=== PATIENT | male | born 1985 | race Caucasian/White ===

== ENCOUNTER 2024-04-06 22:55 | Emergency (ER) | payer OTHER ==
[~2024-04-06] VITALS: Ht 182.9 cm; Wt 90.1 kg
[2024-04-06 23:57] VITALS: BP 164/97
== END 2024-04-06 23:58 | disposition home or self-care (01) ==
LOC: ED 22:55
DX: S93.402A Sprain of unspecified ligament of left ankle, initial encounter (principal); W10.9XXA Fall (on) (from) unspecified stairs and steps, initial encounter; Z88.2 Allergy status to sulfonamides
CPT/HCPCS: 73610; 99283

== ENCOUNTER 2025-06-03 13:10 | Inpatient (IN) | payer OTHER ==
[~2025-06-03] VITALS: Ht 182.9 cm; Wt 90.3 kg
[2025-06-03] VITALS (8 sets, daily range): BP systolic 111–136; BP diastolic 63–89
[~2025-06-03 13:10] MED LIST: SEVOFLURANE 250 ML BTL INH ONE
[2025-06-03] MEDS ORDERED: ADDERALL XR 2020 MG PO (13:46)
[2025-06-03] MEDS ORDERED: ADDERALL 5 MG TA5 MG PO (13:46)
[2025-06-03] MEDS ORDERED: FLOMAX0.4 MG PO (13:46)
[2025-06-03 13:47] LABS: BLOOD/HGB, URINE NEGATIVE (Negative); KETONE, URINE NEGATIVE (Negative); LEUK ESTERASE, URINE NEGATIVE (negative); NITRITE, URINE NEGATIVE (negative)
[2025-06-03] MEDS ORDERED: WELLBUTRIN XL300 MG PO (13:47)
[2025-06-03] MEDS ORDERED: PEPCID20 MG PO (13:47)
[2025-06-03 13:55] LABS: BASOPHILS 0.5 % (0.2-1.2); EOSINOPHILS 0.8 % (0.8-7.0); LYMPHOCYTES 9.4 % (21.8-53.1); MCH 33.5 PG (25.7-32.2); MCHC 35.7 g/dL (32.3-36.5); MCV 93.7 fL (79.0-92.2); MONOCYTES 7.2 % (5.3-12.2); NEUTROPHILS 81.7 % (34.0-67.9); RBC 5.05 M/uL (4.63-6.08)
[2025-06-03 14:11] LABS: ALT (SGPT) 37.0 U/L (14-59); AST (SGOT) 23.0 U/L (15-37); GLOMERULAR FILTRATION RATE,EST 100.0 mL/min (>60); PROTEIN, TOTAL 7.9 g/dL (6.4-8.2); UREA NITROGEN 18.0 mg/dL (7-18)
[2025-06-03] MEDS ORDERED: SODIUM CHLORIDE 0.9% 1,000 ML IV PRN (15:00)
[2025-06-03] MEDS ORDERED: LIDOCAINE 2% VISCOUS 6 ML SYR TOP ONE (16:00)
[2025-06-03] MEDS ORDERED: HYDROmorphone HCL 1 MG/ML SYR IV PRN (16:00)
[2025-06-03] MEDS ORDERED: LIDOCAINE HCL 2% 5 ML SDV ONE (18:02)
[2025-06-03] MEDS ORDERED: ROCURONIUM BROMIDE 50 MG/5 ML SYR ONE (18:02)
[2025-06-03] MEDS ORDERED: LIDOCAINE HCL 1% 30 ML SDV ONE (18:02)
[2025-06-03] MEDS ORDERED: MIDAZOLAM HCL 2 MG/2 ML VIAL ONE (18:03)
[2025-06-03] MEDS ORDERED: KETOROLAC TROMETHAMINE 30 MG/ML VIAL ONE (18:03)
[2025-06-03] MEDS ORDERED: DEXAMETHASONE SOD PHOS 4 MG/ML VIAL ONE ×2 (18:03→19:10)
[2025-06-03] MEDS ORDERED: fentaNYL citrate 100 MCG/2 ML VIAL ONE (18:03)
[2025-06-03] MEDS ORDERED: SUGAMMADEX SODIUM 200 MG/2 ML ML ONE (18:03)
--- NOTE | 2025-06-03 18:05 | NUR ---
PT SELF TRANSFERS TO BED FROM [facility] VISITOR PRESENT IN THE ROOM. PRE-OP ED PROVIDED PT DENIES QUESTIONS OR CONCERNS. PT ORIENTED TO ROOM AND ROUTINE.
--- NOTE | 2025-06-03 18:15 | NUR ---
PT REMOVES JEWELRY PLACED IN ROOM SAFE WITH WALLET AND PHONE. ALL QUESTIONS ANSWERED. NG TUBE TO LIS DRAINING BROWN FLUID. VISITOR CONTINUES TO BE PRESENT CALL LIGHT IN LAP PT DENIES NEEDS
[2025-06-03] MEDS ORDERED: CIALIS10 MG PO (18:24)
[2025-06-03] MEDS ORDERED: CEFTRIAXONE SODIUM 1 GM VIAL ONE (18:44)
[2025-06-03] MEDS ORDERED: SODIUM CHLORIDE 0.9% 20 ML IV ONE (18:46)
[2025-06-03] MEDS ORDERED: SODIUM CHLORIDE 0.9% 40 ML IV ONE (19:10)
[2025-06-03] MEDS ORDERED: Ropivacaine HCl 0.5% 30 ML VIAL ONE (19:10)
--- NOTE | 2025-06-03 19:30 | NUR ---
REPORT RECEIVED FROM DAY SHIFT RN. PT OFF FLOOR AT THIS TIME IN OR. FAMILY IN ROOM.
[2025-06-03] MEDS ORDERED: DEXTROSE 5% - LACTATED RINGERS 1,000 ML IV SCH (20:00)
[2025-06-03] MEDS ORDERED: NALOXONE HCL 0.4 MG SYR IV PRN (20:00)
[2025-06-03] MEDS ORDERED: MORPHINE SULFATE 10 MG/ML VIAL IV PRN (20:00)
[2025-06-03] MEDS ORDERED: KETOROLAC TROMETHAMINE 30 MG/ML VIAL IV PRN (20:00)
[2025-06-03] MEDS ORDERED: PROCHLORPERAZINE EDISYLATE 10 MG/2 ML VIAL IV PRN (20:00)
[2025-06-03] MEDS ORDERED: ACETAMINOPHEN 1,000 MG/100 ML VIAL ONE (20:01)
[2025-06-03] MEDS ORDERED: HYDROmorphone HCL 1 MG/ML SYR ONE (20:23)
--- NOTE | 2025-06-03 20:34 | NUR ---
06/03/252033 Annalise Sanford 2008-PT ARRIVES TO PACU ON 6L VIA MASK. PT IS NONAROUSABLE TO VERBAL SIMULI. RESP EVEN AND UNLABORED. OPA IN PLACE. O2 SAT AT 100% ON 6L. 2015-PT IS REACTIVE. OPA REMOVED. RESP EVEN AND UNLABORED. 2016-PT IS DROWSY. RESP EVEN AND UNLABORED. RATES PAIN 5/10. DENIES NAUSEA. PT GIVEN PILLOW TO SPLINT WITH WHEN COUGHING. 2019- HOB ELEVATERD. RESP EVEN AND UNLABORED. 2022-O2 TITRATED OFF. O2 SATS ABOVE 95% ON RA. 2024-RATES PAIN 6/10. PAIN MEDS GIVEN PER LEAD CARE MANAGER. RESP EVEN AND UNLABORED. O2 SAT ABOVE 95% ON RA. 2029-PT TAKLKING WITH LEAD CARE MANAGER. RESP EVEN AND UNLABORED. O2 SATS ABOVE 95% ON RA.
--- NOTE | 2025-06-03 20:50 | NUR ---
PT TO FLOOR VIA BED WITH PACU NURSE. REPORT RECEIVED. VS OBTAINED. MIDLINE ABD DRESSING WITH SCANT AMOUNT SEROSANG DRAINAGE. NGT TO LIWS WITH SCANT BROWN DRAINAGE. PT NPO. FEW ICE CHIPS PROVIDED. IVF INFUSING PER ORDER. SCD'S/CPOX IN PLACE. FAMILY AT BEDSIDE. NO NEEDS AT THIS TIME.
[2025-06-03] MEDS ORDERED: FAMOTIDINE 20 MG/ 2 ML VIAL IV SCH (21:00)
--- NOTE | 2025-06-03 21:51 | NUR ---
DR BARRERA CALLED PER REQUEST OF PRIMARY RN NALINI TO ASK FOR NICOTINE PATCH pt IS ASKING FOR ONE. TELEPHONE ORDER READ BACK FROM MD FOR DAILY NICOTINE PATCH 7MG/24HR TO START NOW. ORDER PLACED AND PRIMARY RN UPDATED.
[2025-06-03] MEDS ORDERED: NICOTINE 7 MG/24 HR 1 EA TDSY TD SCH (22:00)
--- NOTE | 2025-06-03 22:03 | NUR ---
ASSESSMENT COMPLETE. SCHEDULED MEDS ADMIN PER EMAR. PT REPORTS ABD PAIN 01/22. PRN FOR PAIN ADMIN PER EMAR. DENIES NAUSEA. NGT TO LIWS WITH SMALL AMOUNT BROWN DRAINAGE. MIDLINE ABD INCISION WITH DRESSING INTACT. SMALL AMOUNT SEROSANG DRAINAGE. BOWEL TONES HYPOACTIVE. ABD SOFT. ICE PACK PROVIDED FOR COMFORT. CPOX/SCD'S IN PLACE. FEW ICE CHIPS PROVIDED. PT DENIES QUESTIONS OR CONCERS. CALL LIGHT IN REACH.
--- NOTE | 2025-06-03 23:06 | NUR ---
POST OP VS OBTAINED. PT REPORTS HE IS RESTING COMFORTABLY. NO C/O PAIN AT THIS TIME AT REST. NO FURTHER NEEDS.
--- NOTE | 2025-06-03 23:49 | NUR ---
LAST SET OF POST-OP VVS, pt RESTING QUIETLY IN BED. RR EVEN AND UNLABORED, NO DISTRESS NOTED. CALL LIGHT IN REACH. CPOX REMAINS IN PLACE.
[2025-06-04] VITALS (10 sets, daily range): BP systolic 122–145; BP diastolic 79–93
--- NOTE | 2025-06-04 01:16 | NUR ---
PT RESTING IN BED WITH EYES CLOSED. RESPIRATIONS EVEN. SpO2 94% ON RA. HOB ELEVATED. HR 70'S. CALL LIGHT IN REACH.
--- NOTE | 2025-06-04 01:42 | NUR ---
PT RESTING WITH EYES CLOSED. AWAKENS EASILY. VS AND I&O OBTAINED. ASSESSMENT UNCHANGED. NO C/O PAIN OR NAUSEA AT THIS TIME. DENIES NEEDS. CALL LIGHT IN REACH.
--- NOTE | 2025-06-04 03:40 | NUR ---
CALL LIGHT ANSWERED. PT REPORTS ABD PAIN. PRN FOR PAIN ADMIN PER EMAR. ICE PACK PROVIDED FOR INCISION. BOWEL TONES ACTIVE. PT REPORTS FLATUS. DRESSING UNCHANGED. NO FURTHER NEEDS.
[2025-06-04 05:14] LABS: BASOPHILS 0.2 % (0.2-1.2); EOSINOPHILS 0 % (0.8-7.0); LYMPHOCYTES 3.8 % (21.8-53.1); MCH 33.1 PG (25.7-32.2); MCHC 34.7 g/dL (32.3-36.5); MCV 95.4 fL (79.0-92.2); MONOCYTES 3.1 % (5.3-12.2); NEUTROPHILS 92.5 % (34.0-67.9); RBC 4.80 M/uL (4.63-6.08)
[2025-06-04 05:24] LABS: GLOMERULAR FILTRATION RATE,EST 115.0 mL/min (>60); UREA NITROGEN 14.0 mg/dL (7-18)
--- NOTE | 2025-06-04 05:56 | NUR ---
LAB IN FOR MORNING DRAW. PT REPORTS ABD PAIN 01/22. PRN FOR PAIN ADMIN PER EMAR. PT UP TO AMB X 1 LAP AROUND NURSING UNIT WITH SBA. IRVIN WELL. BACK TO RECLINER. NO FURTHER NEEDS. CALL LIGHT IN REACH.
--- NOTE | 2025-06-04 07:39 | NUR ---
REPORT RECEIVED FROM NALINI HORTA. PATIENT IN BED, EYES CLOSED, CHEST RISE EVEN AND UNLABORED. CALL LIGHT AND PERSONAL BELONGINGS IN REACH.
--- NOTE | 2025-06-04 08:41 | NUR ---
PATIENT IN BED. ASSISTED PATIENT TO RESTROOM AND BACK TO BED. CALL LIGHT IN REACH. NG TUBE TO INTERMITTENT SUCTION. CPOX IN PLACE. IV FLUID INFUSING WITHOUT DIFFICULTY. CPOX IN PLACE. SCHEDULED MEDICATIONS ADMINISTERED. ASSESMENT COMPLETE. PATIENT PROVIDED PRN PAIN MEDICATION AT HIS REQUEST.
--- NOTE | 2025-06-04 09:14 | NUR ---
ALERT AND ORIENTED IN BED. FAMILY MEMBER AT BEDSIDE. HAS NG TUBE IN PLACE. VERIFIED DEMOGRAPHICS WITH PATIENT. HAS NO DME. DRIVES AT BASELINE. HAS NO FINANCIAL CONCERNS. NO CM NEEDS NOTED AT THIS TIME. WILL DC TO HOME WHEN MEDICALLY READY.
[2025-06-04] MEDS ORDERED: VITAMIN C500 M1 PO (09:18)
[2025-06-04] MEDS ORDERED: IBU-200200 MG PO (09:18)
[2025-06-04] MEDS ORDERED: TRIAMCINOLONE A15 G1 TOP (09:18)
[2025-06-04] MEDS ORDERED: TYLENOL EXTRA500 MG PO (09:18)
[2025-06-04] MEDS ORDERED: [UNRECOGNIZED DRUG - OTHER] PO (09:19)
--- NOTE | 2025-06-04 09:23 | NUR ---
MED REC COMPLETE
--- NOTE | 2025-06-04 10:03 | NUR ---
PATIENT AMBULATED THE [place] WITH THIS RN STANDBY ASSIST, PATIENT TOLERATED WELL. ASSISTED PATIENT TO RESTROOM AND BACK TO BED. CALL LIGHT AND PERSONAL BELONGINGS IN REACH OF PATIENT. PATIENT DENIES CONCERNS AT THIS TIME.
--- NOTE | 2025-06-04 10:56 | NUR ---
UR CLINICAL REVIEW: MCG-PER MCG REVIEW MEETS INPT FOR SBO WITH NEED FOR PROCEDURE, NG AND IVF. ODS [facility] INPT 06/03/25 @ 2003 ORDER MATCHES REG CLINICAL FAXED TO [facility] FOR AUTH REVIEW DISCHARGE TO HOME WHEN STABLE 06/05/25 DC REVIEW
--- NOTE | 2025-06-04 11:20 | NUR ---
PATIENT IN BED, EYES CLOSED, CHEST RISE EVEN AND UNLABORED. CALL LIGHT AND PERSONAL BELONGINGS IN REACH OF PATIENT. NO NEEDS NOTED AT THIS TIME.
--- NOTE | 2025-06-04 12:27 | NUR ---
PATIENT IN BED, AT BEDSIDE. THIS RN PROVIDED STANDBY ASSIST, PATIENT AMBULATED [place], PATIENT TOLERATED WELL. ASSISTED PATIENT TO RESTROOM AND BACK TO BED. CALL LIGHT AND PERSONAL BELONGINGS IN REACH OF PATIENT.
--- NOTE | 2025-06-04 12:33 | NUR ---
PRN PAIN MEDICATION ADMINISTERED PER PATEINT REQUEST. PATIENT IN BED, CALL LIGHT IN REACH
--- NOTE | 2025-06-04 13:52 | NUR ---
PATIENT IN BED, EYES CLOSED, CHEST RISE EVEN AND UNLABORED. CALL LIGHT AND PERSONAL BELONGINGS IN REACH OF PATIENT.
--- NOTE | 2025-06-04 14:49 | NUR ---
MEDICAL PATHOLOGIST IN ROOM WITH PATIENT, PATIENT AMBULATING [place] WITH MEDICAL PATHOLOGIST.
--- NOTE | 2025-06-04 15:00 | NUR ---
PATIENT AND I WALKED SIX LAPS AROUND MED SURG.
--- NOTE | 2025-06-04 15:30 | NUR ---
PATIENT IN BED, SURGICAL MD MARCOS AT BEDSIDE. VERBAL ORDERS RECEIVED TO DC NG TUBE. THEN ADVANCE DIET TOLERATED BEGINING WITH CLEAR LIQUIDS. NO FURTHER ORDERS AT THIS TIME. CALL LIGHT AND PERSONAL BELONGINGS IN REACH OF PATIENT.
--- NOTE | 2025-06-04 15:50 | NUR ---
PATIENT IN BED. NG TUBE REMOVED PER ORDER, INTACT, WNL, PATIENT TOLERATED WELL. PATIENT DENIES CONCERNS AT THIS TIME. CLEAR LIQUIDS AT BEDSIDE. PATIENT EDUCATED TO ADVANCE DEIT IN SMALL AMOUNTS SLOWLY AND TOLERATED. PATIENT VERBALIZED UNDERSTANDING AND DENEIS QUESTIONS. CALL LIGHT AND PERSONAL BELONGINGS IN REACH OF PATIENT.
--- NOTE | 2025-06-04 16:24 | NUR ---
PATIENT IN BED, EYES CLOSED, CHEST RISE EVEN AND UNLABORED. CALL LIGHT AND PERSONAL BELONGINGS IN REACH OF PATIENT.
--- NOTE | 2025-06-04 17:17 | NUR ---
PATIENT IN BED, DINNER AT BEDSIDE. CALL LIGHT AND PERSONAL BELONGINGS IN REACH OF PATIENT.
--- NOTE | 2025-06-04 18:28 | NUR ---
PATIENT AMBULATED THE HALLS WITH THIS RN STANDBY ASSIST. PATIENT IN BED, CALL LIGHT AND PERSONAL BELONGINGS IN REACH OF PATIENT.
--- NOTE | 2025-06-04 19:18 | NUR ---
REPORT RECEIVED FROM DAY SHIFT RN. PT LYING IN BED RESTING WITH EYES CLOSED. RESPIRATIONS EVEN. WHITE BOARD UPDATED. CALL LIGHT IN REACH.
--- NOTE | 2025-06-04 20:31 | NUR ---
EVENING ASSESSMENT COMPLETE. SCHEDULED MEDS ADMIN PER EMAR. PT REPORTS ABD PAIN 5/10. PRN FOR PAIN ADMIN PER EMAR. ICE PACK PROVIDED FOR COMFORT. PT DENIES NAUSEA. ENSURE AND PUDDING PROVIDED. BOWEL TONES ACTIVE. ABD SOFT. PT REPORTS FLATUS. MIDLINE ABD INCISION WITH DRESSING INTACT. SMALL AMOUNT OLD SHADOWING NOTED. PT DENIES QUESTIONS OR CONCERNS. CALL LIGHT IN REACH.
--- NOTE | 2025-06-04 21:50 | NUR ---
PT JOSE [place] INDEPENDENTLY. REPORTS IRVIN FULL LIQUID DIET WELL. NO NEEDS AT THIS TIME.
[2025-06-05] VITALS (10 sets, daily range): BP systolic 127–147; BP diastolic 74–97
--- NOTE | 2025-06-05 00:48 | NUR ---
PT AMB X 2 LAPS AROUND NURSING UNIT. BACK TO BED, IRVIN WELL. REPORTS SOME ABD PAIN, DENIES PRN FOR PAIN WHEN OFFERED. ICE PACK PROVIDED. URINAL EMPTIED. PUDDING PROVIDED. NO FURTHER NEEDS. CALL LIGHT IN REACH.
--- NOTE | 2025-06-05 02:03 | NUR ---
CALL LIGHT ANSWERED. PT REPORTS ABD PAIN 02/21. PRN FOR PAIN ADMIN PER EMAR. ABD ASSESSMENT UNCHANGE. URINAL EMPTIED. NO FURTHER NEEDS.
--- NOTE | 2025-06-05 06:25 | NUR ---
PT UP AMB IN [place] INDEPENDENTLY. BACK TO ROOM. VS AND I&O OBTAINED. REPORTS ABD PAIN /10. PRN FOR PAIN ADMIN PER EMAR. DENIES NAUSEA. PT DENIES FURTHER NEEDS. CALL LIGHT IN REACH.
--- NOTE | 2025-06-05 06:59 | NUR ---
PT REQUESTING HOME MEDS. PHONED. NEW TELEPHONE ORDERS RECEIVED VERIFIED WITH READBACK METHOD.
[2025-06-05] MEDS ORDERED: HYDROCODONE/ACETA 5/325 TAB PO PRN (07:00)
--- NOTE | 2025-06-05 07:24 | NUR ---
REPORT RECEIVED FROM NALINI HORTA. PATIENT UP IN ROOM, DENIES CONCERNS. CALL LIGHT IN REACH.
[2025-06-05] MEDS ORDERED: FAMOTIDINE 20 MG TAB PO SCH (09:00)
[2025-06-05] MEDS ORDERED: TAMSULOSIN HCL 0.4 MG CAP PO SCH (09:00)
--- NOTE | 2025-06-05 09:22 | NUR ---
PATIENT IN BED, FAMILY AT BEDSIDE. ASSESMENT COMPLETE. SCHEDULED MEDICATIONS ADMINISTERED. PRN PAIN MEDICATION ADMINISTERED PER PATIENT REQUEST. CALL LIGHT AND PERSONAL BELONGINGS IN REACH OF PATIENT. PATIENT DENIES CONCERNS.
--- NOTE | 2025-06-05 09:52 | NUR ---
PATIENT AMBULATING [place]
--- NOTE | 2025-06-05 09:53 | NUR ---
AMBULATING IN HALLWAY, NO CM NEEDS. WILL GO HOME WHEN MEDICALLY READY
--- NOTE | 2025-06-05 10:40 | NUR ---
PATIENT IN BED, DENIES CONCERNS AT THIS TIME. CALL LIGHT AND PERSONAL BELONGINGS IN REACH OF PATIENT.
[2025-06-05] MEDS ORDERED: POLYETHYLENE GLYCOL 3350 1 PACKET PO SCH (10:52)
--- NOTE | 2025-06-05 11:13 | NUR ---
PATIENT IN BED, SCHEDULED MEDICATION ADMINISTERED. ABDOMINAL BINDER SUPPLIED. CALL LIGHT AND PERSONAL BELONGINGS IN REACH OF PATIENT. PATIENT DENIES CONCERNS.
--- NOTE | 2025-06-05 11:30 | NUR ---
AFTER PATIENT WAS DONE WITH HIS BED BATH. PATIENT AND I WALKED AROUND MED SURG.
--- NOTE | 2025-06-05 11:56 | NUR ---
PATIENT IN BED, ABDOMINAL BINDER IN PLACE. LUNCH AT BEDSIDE. CALL LIGHT AND PERSONAL BELONGINGS IN REACH OF PATIENT. PATIENT DENIES CONCERNS AT THIS TIME.
--- NOTE | 2025-06-05 12:18 | NUR ---
PATIENT AMBULATING HALLS WITH RESOURCE TEACHER.
--- NOTE | 2025-06-05 13:08 | NUR ---
PATIENT IN BED, FINISHED REGUALR DIET LUNCH. DENIES GI CHANGES OF CONCERS. FOCUSED ASSESMENT COMPLETED. CALL LIGHT AND PERSONAL BELONGINGS IN REACH OF PATIENT.
--- NOTE | 2025-06-05 13:17 | NUR ---
PATIENT IN BED AT THIS TIME. PLUNGER MACHINE OPERATOR CHARTED VITALS AND I&O'S. CALL LIGHT WITHIN REACH, NO FURTHER NEEDS.
--- NOTE | 2025-06-05 13:30 | NUR ---
PATIENT AMBULATING HALL
--- NOTE | 2025-06-05 13:53 | NUR ---
PATIENT IN BED, CALL LIGHT AND PERSONAL BELONGINGS IN REACH.
--- NOTE | 2025-06-05 14:17 | NUR ---
PATIENT IN BED, EYES CLOSED, CHEST RISE EVEN AND UNLABORED. CALL LIGHT AND PERSONAL BELONGINGS IN REACH.
--- NOTE | 2025-06-05 15:58 | NUR ---
PATIENT IN BED, CALL LIGHT IN REACH
--- NOTE | 2025-06-05 16:07 | NUR ---
PRN PAIN MEDICATION ADMINISTERED PER PATIENT REQUEST. PATIENT PROVIDED WITH FRESH ICE WATER. PATIENT DENIES FURTHER CONCERNS. PATIENT IN BED, CALL LIGHT AND PERSONAL BELONGINGS IN REACH.
--- NOTE | 2025-06-05 17:08 | NUR ---
PATIENT IN BED, DINNER AT BEDSIDE. CALL LIGHT AND PERSONAL BELONGINGS IN REACH. PATIENT DENIES CONCERNS.
--- NOTE | 2025-06-05 17:22 | NUR ---
PATIENT AMBULATING [place]
--- NOTE | 2025-06-05 19:33 | NUR ---
REPORT RECEIVED FROM DAY SHIFT RN. PATIENT SITTING IN CHAIR. DENIES NEEDS AT THIS TIME. CALL LIGHT IN REACH.
--- NOTE | 2025-06-05 20:15 | NUR ---
PT C/O ABDOMINAL PAIN 12/22. PT MEDICATED WITH 1 HYDROCODONE PO. PT PROVIDE PUDDING AND 240ML ENSURE. PT RESTING IN BED. SIDERAILS UP X2, CALL BONNER IN REACH, BED IN LOW POSITION AND LOCKED, PT INSTRUCTED TO CALL FOR ASSISTANCE PRN.
--- NOTE | 2025-06-05 20:45 | NUR ---
IN ROOM FOR VS. pt RESTING IN BED ON COMPUTER. VSS. URINAL EMPTIED. MYCHAL YOUNG IN ROOM MEDICATING pt. CALL LIGHT IN REACH.
--- NOTE | 2025-06-05 21:09 | NUR ---
PATIENT RESTING IN BED. ABD BINDER IN PLACE. PATIENT DENIES PAIN. BOWEL TONES ACTIVE. PATIENT DENIES FURTHER NEEDS. CALL LIGHT IN REACH.
--- NOTE | 2025-06-06 02:47 | NUR ---
ROUNDING ON PATIENT. PATIENT DENIES NEEDS. CALL LIGHT IN REACH.
[2025-06-06 05:46] VITALS: BP 145/93
--- NOTE | 2025-06-06 05:49 | NUR ---
ALARM SIGNAL OPERATOR OBTAINED VITALS AND I&O. PT REQUESTING PAIN MEDS. RN NOTIFIED. PT STATES NO FURTHER NEEDS AT THIS TIME. CALL LIGHT WITHIN REACH.
--- NOTE | 2025-06-06 05:54 | NUR ---
PRN PAIN MEDICATION ADMINISTERED FOR 6/10 ABD PAIN. PATIENT DENIES FURTHER NEEDS. CALL LIGHT IN REACH. ABD BINDER REMAINS IN PLACE.
--- NOTE | 2025-06-06 07:10 | NUR ---
RECIEVED REPORT FROM MYCHAL BELTRAN. PT IS AMBULATING AROUND ROOM. DENIES ANY NEEDS AT THIS TIME.
[2025-06-06] MEDS ORDERED: IBUPROFEN 600 MG TAB PO PRN (07:45)
[2025-06-06] MEDS ORDERED: POLYETHYLENE GLYCOL 3350 1 PACKET PO SCH (09:00)
--- NOTE | 2025-06-06 09:20 | NUR ---
PT AMBULATING HALLS AT THIS TIME.
--- NOTE | 2025-06-06 09:20 | NUR ---
Spoke with Bk his . Pt wanting to go home today. He is ambulating with his small children in the hallway. He denies any needs. will transport him home.
--- NOTE | 2025-06-06 09:30 | NUR ---
PATIENT AMBULTING IN THE HALLWAY INDEPENDENTLY WITH HIS TWO KIDS AT THIS TIME.
[2025-06-06 09:38] VITALS: BP 134/87
--- NOTE | 2025-06-06 09:43 | NUR ---
PATIENT IS IN BED AT THIS TIME, DID A FEW LAPS EARLIER, CHARTED VITALS AND I&O'S, CALL LIGHT WITH IN REACH, FAMILY IN ROOM AND NOTHING ELSE NEEDED AT THIS TIME.
--- NOTE | 2025-06-06 10:00 | NUR ---
PATIENT IS AMBULATING IN THE HALLWAY INDEPENDENTLY.
[2025-06-06 11:23] VITALS: BP 134/87
--- NOTE | 2025-06-06 11:26 | NUR ---
PT AMBULATING AROUND ROOM AT THIS TIME.
--- NOTE | 2025-06-06 12:36 | NUR ---
PT SITTING UP IN BED ON LAPTOP. CALL LIGHT AND PERSONAL BELONGINGS ARE WITHIN REACH.
[2025-06-06] MEDS ORDERED: HYDROCODON-ACE1 EA10 PO (13:30)
[2025-06-06] MEDS ORDERED: CEPHALEXIN500 MG PO (13:31)
--- NOTE | 2025-06-06 13:46 | NUR ---
PT DRESSED IN OWN CLOTHES, STANDING IN ROOM AWAITING D/C. CALL LIGHT AND PERSONAL BELONGINGS ARE WITHIN REACH.
[2025-06-06 14:15] VITALS: BP 145/96
[2025-06-06 14:16] VITALS: BP 145/96
== END 2025-06-06 14:26 | disposition home or self-care (01) | DRG 337 ==
LOC: ED 13:10 → MS 16:15
PROVIDERS: Emergency Medicine; ADMIT Surgery; ATTEND Surgery
PROC: 3E03329 Introduction of Other Anti-infective into Peripheral Vein, Percutaneous Approach (ICD-10-PCS; 2025-06-03)
PROC: 0DNN0ZZ Release Sigmoid Colon, Open Approach (ICD-10-PCS; principal; 2025-06-03 19:00)
DX: K56.50 Intestinal adhesions [bands], unspecified as to partial versus complete obstruction (principal); F32.A Depression, unspecified; K21.9 Gastro-esophageal reflux disease without esophagitis; E78.00 Pure hypercholesterolemia, unspecified; F90.9 Attention-deficit hyperactivity disorder, unspecified type; F10.11 Alcohol abuse, in remission; Z87.891 Personal history of nicotine dependence; Z88.2 Allergy status to sulfonamides; Z90.89 Acquired absence of other organs; Z79.899 Other long term (current) drug therapy; Z79.891 Long term (current) use of opiate analgesic
CPT/HCPCS: 00860; 36415; 71045; 74177; 80048; 80053; 81003; 83690; 85025; 96361; 96374; 96375; 96376; 99285-25; J0131; J1100; J1171; J1885; J2003; J2250; J2270; J2405; J2704; J2795; J3010; J3490; J7030; J7121; Q9967